=== PATIENT | female | born 1955 ===

== ENCOUNTER 2021-08-11 09:38 | Outpatient (CLI) | payer OTHER | END 2021-08-11 09:43 | disposition home or self-care (01) | LOC: SONOGRAMA 09:38 | PROVIDERS: ATTEND Pathology Anatomic Pathology & Clinical Pathology | DX: E04.2 Nontoxic multinodular goiter (principal) ==

== ENCOUNTER 2021-11-17 08:03 | Outpatient (CLI) | payer OTHER | END 2021-11-17 08:08 | disposition home or self-care (01) | LOC: EDBD 08:03 → SONOGRAMA 08:03 | PROVIDERS: ATTEND Pathology Anatomic Pathology & Clinical Pathology | DX: E04.2 Nontoxic multinodular goiter (principal); E07.9 Disorder of thyroid, unspecified; E04.1 Nontoxic single thyroid nodule; D34 Benign neoplasm of thyroid gland ==